=== PATIENT | female | born 1975 | race Caucasian/White ===

== ENCOUNTER 2016-11-30 09:56 | Emergency (ER) | payer BC ==
[2016-11-30 11:04] VITALS: BP 120/67
--- NOTE | 2016-11-30 11:33 | UC ---
Throat Pain/Nasal Fernando HPI - HPI Summary HPI Summary: 41 yo female ill for one week runny nose sinus pressure and pain/post nasal drip productive cough headache upper teeth and gums sensitive - History of Current Complaint Chief Complaint: UCGeneralIllness Stated Complaint: FEVER,COUGH,ST,EYES Time Seen by Provider: 11/30/16 11:08 Hx Obtained From: Patient Hx Last Menstrual Period: 11/04/16 Onset/Duration: Gradual Onset, Lasting Weeks - 1 Severity: Moderate Pain Intensity: 3 Pain Scale Used: 0-10 Numeric Cough: Productive Associated Signs & Symptoms: Positive: Sinus Discomfort, Nasal Discharge - Epiglottits Risk Factors Epiglottis Risk Factors: Negative - Allergies/Home Medications Allergies/Adverse Reactions: Allergies Allergy/AdvReac Type Severity Reaction Status Date / Time Cefaclor [From [facility]] Allergy Severe Hives Verified 11/30/16 10:57 Sulfa Antibiotics Allergy Severe Anaphylatic Verified 11/30/16 10:57 Shock Latex Allergy Intermediate Rash Verified 11/30/16 10:57 Home Medications: Home Medications Chlorpheniramine-Dm [Coricidin Hbp Cough & Col 4-30 mg] 1 tab PO Q6H PRN [History Confirmed 11/30/16] Metoprolol Succinate XL TAB* [Toprol XL TAB*] 150 mg PO DAILY 11/30/16 [History Confirmed 11/30/16] PMH/Surg Hx/FS Hx/Imm Hx Endocrine History Of: Reports: Diabetes Cardiovascular History Of: Reports: Cardiac Disorders, Hypertension - ON MEDS Denies: Congestive Heart Failure Respiratory History Of: Denies: Asthma GI/ History Of: Reports: Kidney Stones - 2014- FIRST TIME NEEDING SURGERY. ESWL ON 03/12/15. STENT REMOVED 03/19/15 Denies: Renal Disease Neurological History Of: Reports: Migraine - R/T MENSTRUAL CYCLE Psychological History Of: Reports: Anxiety Cancer History Of: Denies: Breast Cancer - Surgical History Surgical History: Yes Surgery Procedure, Year, and Place: TUBAL LIGATION- [place]. TONSILLECTOMY- [facility]. C-SECTIONS- 1995 AND 1998-[place]. GALL BLADDER REMOVAL- [place] - 1998. Lithotripsy for kidney stones - 03/2015 - Family History Known Family History: Positive: Hypertension, Diabetes - Social History Alcohol Use: Rare Alcohol Amount: 1 GLASS WINE WEEKLY Substance Use Type: None Smoking Status (MU): Never Smoked Tobacco Have You Smoked in the Last Year: No - Immunization History Most Recent Influenza Vaccination: 2016 Most Recent Tetanus Shot: within 10 years Most Recent Pneumonia Vaccination: never Hx Tetanus, Diphtheria Vaccination: Yes Vaccination Up to Date: Yes Review of Systems Constitutional: Negative Skin: Negative Eyes: Drainage - left, Eye Redness ENT: Dental Pain, Nasal Discharge Respiratory: Cough Cardiovascular: Negative Gastrointestinal: Negative Genitourinary: Negative Motor: Negative Neurovascular: Negative Musculoskeletal: Negative Neurological: Negative Psychological: Negative All Other Systems Reviewed And Are Negative: Yes Physical Exam Triage Information Reviewed: Yes Appearance: Well-Appearing, No Pain Distress, Well-Nourished Vital Signs: Initial Vital Signs Temp 99.6 F 11/30/16 10:59 Pulse 77 11/30/16 10:59 Resp 16 11/30/16 10:59 BP 120/67 11/30/16 10:59 Pulse Ox 97 11/30/16 10:59 Vital Signs Reviewed: Yes Eyes: Positive: Conjunctiva Inflamed - left, Discharge - left ENT: Positive: Hearing grossly normal, Nasal congestion, Nasal drainage, TMs normal. Negative: Tonsillar swelling, Tonsillar exudate, Trismus, Muffled/ hoarse voice Dental: Negative: Gross Decay/Caries @, Dental Fracture @, Abscess @ Neck: Positive: Supple, Nontender, No Lymphadenopathy Respiratory: Positive: Lungs clear, Normal breath sounds, No respiratory distress, Decreased breath sounds - right base Cardiovascular: Positive: RRR, No Murmur. Negative: Tachycardia, Bradycardia Musculoskeletal: Positive: ROM Intact, No Edema Neurological Exam: Normal Psychological Exam: Normal Skin Exam: Normal Throat Pain/Nasal Course/Dx - Differential Dx/Diagnosis Provider Diagnoses: acute bronchitis. acute sinusitis. acute pharyngitis. left conjunctivitis Discharge - Discharge Plan Condition: Stable Disposition: HOME Prescriptions: Amoxicillin (*) [Amoxicillin 875 MG (*)] 875 mg PO BID #20 tab Fluticasone NASAL SPRAY 50MCG* [Flonase NASAL SPRAY 50MCG*] 2 spray BOTH NARES DAILY #1 btl Polymyx/Trimethoprim OPTH* [Polytrim OPHTH*] 1 - 2 drop LEFT EYE QID #1 btl Prednisone 60 mg PO DAILY #9 tab Patient Education Materials: Sinusitis (ED), Acute Bronchitis (ED), Conjunctivitis (ED) Forms: *Work Release Referrals: Jud King PA [Primary Care Provider] - 4 Days (if not better)
--- NOTE | 2016-11-30 11:47 | RAD ---
Indication: Cough, fever. 2 views of the chest including dual energy PA views demonstrate no mediastinal shift. Heart is of normal size and configuration. Lung plunkett appear clear. No alveolar consolidation is noted. No pneumothorax is noted. IMPRESSION: No active cardiopulmonary disease is noted.
== END 2016-11-30 12:16 | disposition home or self-care (01) ==
LOC: UCCORT 09:56
DX: J20.9 Acute bronchitis, unspecified (principal); J01.90 Acute sinusitis, unspecified; H10.32 Unspecified acute conjunctivitis, left eye; E11.9 Type 2 diabetes mellitus without complications; I10 Essential (primary) hypertension; Z87.442 Personal history of urinary calculi; G43.909 Migraine, unspecified, not intractable, without status migrainosus; F41.9 Anxiety disorder, unspecified; Z90.49 Acquired absence of other specified parts of digestive tract; Z88.1 Allergy status to other antibiotic agents; Z88.2 Allergy status to sulfonamides
CPT/HCPCS: 71020; 87502; 87651; 99212; G0463

== ENCOUNTER 2022-08-05 14:18 | Observation (INO) ==
[2022-08-05] MEDS ORDERED: Metoclopramide 5 MG/ML VIAL (10 mg) IV SLOW PU ONE (14:20)
[2022-08-05] MEDS ORDERED: Lactated Ringers 1000 ml BAG 1,000 ML IV ONE (14:20)
[2022-08-05 14:48] LABS: ABS Basophils 0.2 10^3/ul (0-0.2); ABS Lymphocytes 1.9 10^3/ul (1.0-4.8); ABS Monocytes 0.9 10^3/ul (0-0.8); ABS Neutrophils 11.8 10^3/ul (1.5-7.7); Hematocrit 44 % (35-47); Hemoglobin 15.2 g/dL (12.0-16.0); Lymphocyte % 13.1 %; Mean Corpuscular HGB Conc 35 g/dL (31-36); Mean Corpuscular Hemoglobin 30 pg (27-31); Mean Corpuscular Volume 86 fL (80-97); Mean Platelet Volume 7.9 fL (7.4-10.4); Platelet Count 327 10^3/uL (150-450); Red Blood Count 5.11 10^6 /uL (3.70-4.87); Red Cell Distribution Width 13 % (10-15); White Blood Count 14.8 10^3/uL (3.5-10.8)
[2022-08-05] MEDS ORDERED: LORazepam 2 mg VIAL 1 ml IV PUSH ONE (15:33)
[2022-08-05] MEDS ORDERED: Lorazepam PYXIS KEY PRN (15:33)
[2022-08-05 15:45] LABS: Albumin 4.2 g/dL (3.2-5.2); Albumin/Globulin Ratio 1.7 (1-3); Calcium 8.6 mg/dL (8.6-10.3); Globulin 2.5 g/dL (2-4); Total Bilirubin 1.1 mg/dL (0.2-1.0); Total Protein 6.7 g/dL (6.4-8.9); eGFR CKD-EPI 109.5 (>60)
[2022-08-05 15:56] LABS: Magnesium 1.8 mg/dL (1.9-2.7)
[2022-08-05] MEDS ORDERED: Magnesium Sulfate 2 gm BAG 2 GM/50 ML BAG IVPB ONE (15:57)
[2022-08-05] MEDS ORDERED: Droperidol 5 MG/2 ML 2 ML VIAL IV ONE (19:51)
[2022-08-05] MEDS ORDERED: Prochlorperazine 5 mg/ml 2 ml VIAL (10 mg) IV ONE (22:35)
[2022-08-05] MEDS: Lactated Ringers 1000 ml BAG 1,000 ML IV SCH (23:09)
[2022-08-06] MEDS: Metoclopramide 5 MG/ML VIAL (10 mg) IV PRN ×3 (03:53→19:55)
[2022-08-06 06:20] LABS: ABS Monocytes 0.9 10^3/ul (0-0.8); ABS Neutrophils 8.4 10^3/ul (1.5-7.7); Eosinophil % 0.1 %; Hematocrit 42 % (35-47); Hemoglobin 14.4 g/dL (12.0-16.0); Lymphocyte % 17.7 %; Mean Corpuscular HGB Conc 34 g/dL (31-36); Mean Corpuscular Hemoglobin 30 pg (27-31); Mean Corpuscular Volume 87 fL (80-97); Mean Platelet Volume 8.2 fL (7.4-10.4); Platelet Count 277 10^3/uL (150-450); Red Blood Count 4.84 10^6 /uL (3.70-4.87); Red Cell Distribution Width 13 % (10-15); White Blood Count 11.3 10^3/uL (3.5-10.8)
[2022-08-06 06:44] LABS: Calcium 8.1 mg/dL (8.6-10.3); Potassium 3.5 mmol/L (3.5-5.0); eGFR CKD-EPI 112.8 (>60)
[2022-08-06] MEDS ORDERED: Ondansetron 4 mg VIAL 2 MG/ML 2 ml VIAL IV ONE (06:47)
[2022-08-06] MEDS: Lactated Ringers 1000 ml BAG 1,000 ML IV SCH (08:05)
[2022-08-06 11:51] LABS: ABS Lymphocytes 2.1 10^3/ul (1.0-4.8); ABS Monocytes 0.9 10^3/ul (0-0.8); Hematocrit 43 % (35-47); Hemoglobin 14.6 g/dL (12.0-16.0); Lymphocyte % 15.2 %; Mean Corpuscular HGB Conc 34 g/dL (31-36); Mean Corpuscular Hemoglobin 29 pg (27-31); Mean Corpuscular Volume 87 fL (80-97); Mean Platelet Volume 8.3 fL (7.4-10.4); Platelet Count 316 10^3/uL (150-450); Red Blood Count 4.99 10^6 /uL (3.70-4.87); Red Cell Distribution Width 13 % (10-15); White Blood Count 14.1 10^3/uL (3.5-10.8)
[2022-08-06] MEDS ORDERED: Lactated Ringers 1000 ml BAG 1,000 ML IV SCH (15:09)
[2022-08-06] MEDS: Ondansetron ODT 4 mg TAB 4 MG TAB PO PRN ×2 (15:22→23:18)
[2022-08-07] MEDS: Metoclopramide 5 MG/ML VIAL (10 mg) IV PRN (06:01)
[2022-08-07 06:51] LABS: ABS Lymphocytes 2.8 10^3/ul (1.0-4.8); ABS Monocytes 0.8 10^3/ul (0-0.8); ABS Neutrophils 6.9 10^3/ul (1.5-7.7); Eosinophil % 0.1 %; Hematocrit 43 % (35-47); Hemoglobin 14.2 g/dL (12.0-16.0); Lymphocyte % 26.6 %; Mean Corpuscular HGB Conc 33 g/dL (31-36); Mean Corpuscular Hemoglobin 30 pg (27-31); Mean Corpuscular Volume 90 fL (80-97); Mean Platelet Volume 8.3 fL (7.4-10.4); Platelet Count 232 10^3/uL (150-450); Red Blood Count 4.75 10^6 /uL (3.70-4.87); Red Cell Distribution Width 13 % (10-15); White Blood Count 10.5 10^3/uL (3.5-10.8)
[2022-08-07 06:53] LABS: Albumin 3.6 g/dL (3.2-5.2); Albumin/Globulin Ratio 1.6 (1-3); Globulin 2.2 g/dL (2-4); Potassium 3.4 mmol/L (3.5-5.0); Total Bilirubin 0.8 mg/dL (0.2-1.0); Total Protein 5.8 g/dL (6.4-8.9); eGFR CKD-EPI 114.9 (>60)
[2022-08-07] MEDS ORDERED: Potassium Chlor 20 meq TAB.ER PO ONE (07:57)
[2022-08-07] MEDS: Ondansetron ODT 4 mg TAB 4 MG TAB PO PRN (08:40)
[2022-08-07 11:17] VITALS: BP 144/71
== END 2022-08-07 13:05 | disposition home or self-care (01) ==
LOC: ED 14:18 → EDHOLD 21:47 → SUATTDRO 21:50 → INTOOBSV 21:50 → SSU 08-06 00:08
PROVIDERS: ADMIT Internal Medicine; ATTEND Internal Medicine Hematology & Oncology

== ENCOUNTER 2022-10-10 02:31 | Inpatient (IN) ==
[2022-10-10] MEDS ORDERED: NS 0.9% 1000 ml BAG 1,000 ML IV ONE (02:56)
[2022-10-10] MEDS ORDERED: Ondansetron 4 mg VIAL 2 MG/ML 2 ml VIAL IV ONE (02:56)
[2022-10-10 03:18] LABS: ABS Basophils 0.1 10^3/ul (0-0.2); ABS Eosinophils 0.1 10^3/ul (0-0.6); ABS Lymphocytes 2.1 10^3/ul (1.0-4.8); ABS Monocytes 1.1 10^3/ul (0-0.8); ABS Neutrophils 18.3 10^3/ul (1.5-7.7); Eosinophil % 0.4 %; Hematocrit 47 % (35-47); Hemoglobin 16.4 g/dL (12.0-16.0); Lymphocyte % 9.5 %; Mean Corpuscular HGB Conc 35 g/dL (31-36); Mean Corpuscular Hemoglobin 30 pg (27-31); Mean Corpuscular Volume 86 fL (80-97); Platelet Count 364 10^3/uL (150-450); Red Blood Count 5.51 10^6 /uL (3.70-4.87); Red Cell Distribution Width 14 % (10-15); White Blood Count 21.7 10^3/uL (3.5-10.8)
[2022-10-10] MEDS ORDERED: Metoclopramide 5 MG/ML VIAL (10 mg) IV ONE (03:30)
[2022-10-10 03:41] LABS: High Sens Troponin Baseline 181 pg/mL (<15)
[2022-10-10 03:54] LABS: Anion Gap 18 mmol/L (2-11); CO2 Carbon Dioxide 18 mmol/L (22-32); Chloride 95 mmol/L (101-111); Magnesium 1.4 mg/dL (1.9-2.7); Potassium 3.4 mmol/L (3.5-5.0); Sodium 131 mmol/L (135-145)
[2022-10-10 04:01] LABS: ALT 16 U/L (7-52); AST 19 U/L (13-39); Albumin/Globulin Ratio 1.9 (1-3); Alkaline Phosphatase 55 U/L (35-149); Blood Urea Nitrogen 21 mg/dL (6-24); Creatinine, Serum 0.86 mg/dL (0.51-0.95); Globulin 2.7 g/dL (2-4); Glucose 271 mg/dL (70-100); Lipase 11 U/L (11.0-82.0); Phosphorus 1.8 mg/dL (2.5-5.0); Total Protein 7.7 g/dL (6.4-8.9); eGFR CKD-EPI 82.8 (>60)
[2022-10-10 04:32] LABS: HCG Pregnancy < 0.60 mIU/mL
[2022-10-10 04:52] LABS: High Sensitivity Troponin 1 Hr 408 pg/mL (<15)
[2022-10-10] MEDS ORDERED: Ondansetron 4 mg VIAL 2 MG/ML 2 ml VIAL IV PRN (05:34)
[2022-10-10] MEDS ORDERED: Metoclopramide 5 MG/ML VIAL (10 mg) IV SLOW PU PRN (05:36)
[2022-10-10] MEDS ORDERED: Lactated Ringers 1000 ml BAG 1,000 ML IV SCH (06:00)
[2022-10-10] MEDS ORDERED: Dextrose 50% Syringe 50 ml 25 GM/50 ML SYRINGE IV PUSH PRN (06:13)
[2022-10-10] MEDS ORDERED: KCL 20 MEQ/100 ML IVPREMIX 20 MEQ/100 ML BAG IV ONE (06:19)
[2022-10-10] MEDS ORDERED: Magnesium Sulf 4 GM/100 ML IV 4,000 MG/100 ML BAG IVPB ONE (06:19)
[2022-10-10] MEDS ORDERED: Sulfur Hexaflouride MICROSPHR 25 MG VIAL ONE (08:20)
[2022-10-10] MEDS: Enoxaparin 40 MG/0.4 ML SYR SUBCUT SCH (08:47)
[2022-10-10] MEDS ORDERED: Potassium Chlor 20 meq TAB.ER PO ONE (09:00)
[2022-10-10] MEDS ORDERED: Aspirin EC 81 mg TAB.EC (enteric coated) PO SCH (09:00)
[2022-10-10 09:08] LABS: Cholesterol 245 mg/dL; HDL Cholesterol 47.1 mg/dL; Triglycerides 124 mg/dL
[2022-10-10 09:09] LABS: LDL Cholesterol 173 mg/dL
[2022-10-10 10:12] LABS: Calcium 9.1 mg/dL (8.6-10.3); Creatinine, Serum 0.69 mg/dL (0.51-0.95); Magnesium 2.5 mg/dL (1.9-2.7); Potassium 3.5 mmol/L (3.5-5.0); eGFR CKD-EPI 106.3 (>60)
[2022-10-10 10:18] LABS: INR 1.21 (0.88-1.18)
[2022-10-10 10:24] LABS: Free T3 4.1 pg/mL (2.5-3.9)
[2022-10-10 10:25] LABS: Free T4 1.17 ng/dL (0.61-1.12)
[2022-10-10 10:36] LABS: High Sensitivity Troponin 1 Hr 677 pg/mL (<15)
[2022-10-10] MEDS ORDERED: NS 0.9% 1000 ml BAG 1,000 ML IV SCH (11:00)
[2022-10-10] MEDS ORDERED: Iohexol 350 (CONTRAST) 100 ML PAK IV ONE (12:22)
[2022-10-10] MEDS ORDERED: Heparin 2 UNITS/ML 1000 mls 2,000 ML IV ONE (12:22)
[2022-10-10] MEDS ORDERED: Midazolam 5 mg/5 ml VIAL 1 mg/ml 5 ml VIAL (5 mg) ONE (12:22)
[2022-10-10] MEDS ORDERED: nitroGLYCERIN DRIP 25,000 MCG/250 ML BTL ONE (12:22)
[2022-10-10] MEDS ORDERED: niCARdipine 0.1MG/ML IVPREMIX 20 MG/200 ML BAG IV ONE (12:22)
[2022-10-10] MEDS ORDERED: Lidocaine 1% MPF 5 ML VIAL ONE (12:22)
[2022-10-10] MEDS ORDERED: fentaNYL 100 mcg/2 ml 50 MCG/ML VIAL ONE ×2 (12:22→13:11)
[2022-10-10] MEDS ORDERED: Heparin 1,000 UNIT/ML 10 ml (10,000 UNITS) CATHLAB/DIALYSIS ONE (12:22)
[2022-10-10] MEDS ORDERED: Heparin 2 UNITS/ML 1000 mls 1,000 ML IV ONE (12:23)
[2022-10-10 14:55] LABS: TSH Ultra Thyroid Stim Horm 2.53 mcIU/mL (0.34-5.60)
[2022-10-11 05:55] LABS: ABS Basophils 0.1 10^3/ul (0-0.2); ABS Lymphocytes 2.9 10^3/ul (1.0-4.8); ABS Monocytes 0.8 10^3/ul (0-0.8); ABS Neutrophils 8.1 10^3/ul (1.5-7.7); Eosinophil % 0.3 %; Hematocrit 42 % (35-47); Hemoglobin 14.5 g/dL (12.0-16.0); Lymphocyte % 24.7 %; Mean Corpuscular HGB Conc 35 g/dL (31-36); Mean Corpuscular Hemoglobin 30 pg (27-31); Mean Corpuscular Volume 86 fL (80-97); Nucleated Red Blood Cells % 0.1; Platelet Count 264 10^3/uL (150-450); Red Blood Count 4.81 10^6 /uL (3.70-4.87); Red Cell Distribution Width 13 % (10-15); White Blood Count 11.9 10^3/uL (3.5-10.8)
[2022-10-11] MEDS: Enoxaparin 40 MG/0.4 ML SYR SUBCUT SCH (06:19)
[2022-10-11 06:21] LABS: Calcium 8.9 mg/dL (8.6-10.3); Creatinine, Serum 0.7 mg/dL (0.51-0.95); Magnesium 1.9 mg/dL (1.9-2.7)
[2022-10-11 12:06] VITALS: BP 109/58
== END 2022-10-11 13:36 | disposition home or self-care (01) | DRG 190 ==
LOC: ED 02:31 → EDHOLD 02:31 → SUATTDRO 05:34 → EDHOLD 11:15 → MEDTELE 17:50
PROVIDERS: ADMIT Student in an Organized Health Care Education/Training Program; ATTEND Internal Medicine